=== PATIENT | male | born 2000 | race Caucasian/White ===

== ENCOUNTER 2020-06-27 20:52 | Emergency (ER) | payer BC, SELFPAY ==
--- NOTE | 2020-06-27 21:00 | [facility].EDGENADL ---
ED Disposition Clinical Impression: Lumbar disc herniation with radiculopathy Disposition: Home, Self-Care Condition on Discharge: Fair Instructions: DI for Back Pain With Sciatica, DI for Lumbar Radiculopathy Additional Instructions: Medrol Dosepak. Tylenol 3 take-home pack, then Percocet for pain. Additional instructions for BACK PAIN: See your physician as soon as possible for further evaluation. Return immediately if back pain becomes intolerable, or if fever, numbness or weakness of your legs, loss of control of your bowels or bladder. Additional instructions for CONTROLLED SUBSTANCES: You have been prescribed a medication that is a controlled substance. Controlled substances include pain medications known as opiates and sedative nerve medications known as benzodiazepines. Tramadol, fioricet, and gabapentin are also controlled substances. Some common opiates include: Codeine (such as Tylenol #3) Hydrocodone (Vicodin, Lortab, Lorcet, [place]) Oxycodone (Percocet, Percodan, Oxycodone, Oxy IR) Some common benzodiazepines include: Diazepam (Valium) Lorazepam (Ativan) Alprazolam (Xanax) Clonazepam (Klonopin) Oxazepam (Serax) All of these controlled substances are highly addictive and frequently abused. Misuse can and frequently does lead to addiction as well as overdose and . Medication should be stored in a locked cabinet or other secure storage unit. Do not store the medication in a motor vehicle. Short term supplies, 3 days or less, are prescribed because of the highly addictive nature of the medication. Any of the controlled substance medication NOT taken should be disposed of properly and NOT SAVED. The recommended method of disposing of unused medications is: Place the medicines in a sealable plastic bag. If the medicine is a solid, crush it or add water to dissolve it. Add something undesirable (cat litter, coffee grounds, etc.) Dispose of sealed bag in household trash Do not flush or pour unused medicines down a sink or drain. Controlled substances should not be shared, given away or sold. Because of the addictive nature and frequent abuse, these medications are sometimes stolen. These medications should be kept in a safe place where they cannot be stolen. Do not keep them in your car or purse. Lost or stolen prescriptions for controlled substances WILL NOT BE REFILLED in this emergency department, regardless of whether a police report was filed. Prescriptions: Oxycodone HCl/Acetaminophen [Percocet 5/325mg tablet] 1 tab PO Q6HP PRN #20 tablet PRN Reason: Moderate To Severe Pain Transmission Status: Received by [id number] methylPREDNISolone [Medrol 4mg tab] 4 mg PO DIRECTED #21 tab Transmission Status: Pending to [id number] Referrals: Taryn Dunlap MD [Primary Care Provider] - Forms: Work/School Release - Critical Care Critical Care Time: No Attestation: On 06/27/20, the high probability of a clinically significant, sudden or life threatening deterioration of the following system(s) required my full and direct attention, intervention and personal management. The time I documented below is in addition to time spent performing reported procedures but includes the following listed in this critical care notation. Medical Decision Making - Kvng Inquiry Pt receiving controlled substance: Yes Kvng was queried for this patient: Yes Risks and benefits of using a controlled substance: were discussed with pt by me Vital Signs: 06/27/20 21:04 Temperature 97.9 F Temperature Source Oral Pulse Rate [Right] 81 Respiratory Rate 22 Blood Pressure [Right Arm] 181/69 H Blood Pressure Mean [Right Arm] 106 Blood Pressure Source [Right Arm] Automatic Cuff Blood Pressure Position [Right Arm] Supine 02 Sat by Pulse Oximetry 100 Oxygen Delivery Method Room Air Orders (Tests/Meds): ED MEDICATIONS Discontinued Medications Generic Name D
[2020-06-27 21:01] VITALS: BP 242/68; PULSE 83; RESP 16; O2SAT 100
[2020-06-27 21:03] VITALS: BP 181/69; PULSE 79; RESP 16; O2SAT 100
[2020-06-27 21:04] VITALS: BP 181/69; PULSE 81; RESP 22; TEMP 36.6; O2SAT 100; BMI 23.1
--- NOTE | 2020-06-27 21:11 | CT_ITS ---
PROCEDURE: CT LUMBAR SPINE WO CON CLINICAL HISTORY: low back and left leg pain COMPARISON: No exams were available for comparison TECHNIQUE: Axial images obtained with sagittal and coronal reformats. All CT scans at the facility use one or more dose reduction, viz: automated exposure control, ma/kV adjustment per patient size (including targeted exams where dose is matched to indication, i.e. head), or iterative reconstruction technique. FINDINGS: Normal alignment. No fracture or dislocation. No lytic or blastic change. Unfused medial aspect of the right L1 transverse process. L2-L3 and L3-L4 have an unremarkable appearance. L4-5: Minimal bulging disc. L5-S1: Medium-sized left paracentral and foraminal disc protrusion/herniation. There is left lateral recess narrowing with suspected impingement upon the S1 and L5 nerve roots. IMPRESSION: Medium-sized left paracentral and foraminal disc protrusion/herniation at L5-S1 causing lateral recess and foraminal narrowing with suspected impingement upon the L5 and S1 nerve roots. MRI may confirm Dictated by: Jules Dia MD 06/28/2020 11:13 Jules Dia MD in [place] 06/28/2020 11:13
[2020-06-27 22:00] VITALS: BP 124/68; PULSE 69; RESP 16; O2SAT 97
[2020-06-27 22:30] VITALS: BP 118/79; PULSE 67; RESP 17; O2SAT 98
[2020-06-27 23:03] VITALS: BP 119/69; PULSE 60; RESP 16; TEMP 36.6; O2SAT 98
== END 2020-06-27 23:09 | disposition home or self-care (01) ==
PROVIDERS: Emergency Provider Emergency Medicine; PCP Family Medicine
DX: M51.16 Intervertebral disc disorders with radiculopathy, lumbar region (principal); J45.909 Unspecified asthma, uncomplicated
CPT/HCPCS: 72131; 96374; 96375; 99282

== ENCOUNTER 2021-09-16 21:56 | Emergency (ER) | payer OTHER, SELFPAY ==
[2021-09-16 21:57] VITALS: BP 125/66; PULSE 65; RESP 16; TEMP 36.9; O2SAT 99; BMI 24.3
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
[2021-09-16 22:23] LABS: POC Glucose,Bedside 83 (70-110)
[2021-09-16 22:26] LABS: Basophils # 0.2 K/mm3 (0-0.2); Basophils % 1.3 % (0.1-2.0); Eosinophils # 0.3 K/mm3 (0.0-0.4); Eosinophils % 2.8 % (0.1-12.0); Hematocrit 43.9 % (42.0-52.0); Hemoglobin 13.6 g/dL (14.1-18.0); Lymphocytes # 3.1 K/mm3 (0.7-4.5); Lymphocytes % 27.2 % (10-50); Mean Corpuscular HGB Conc 30.9 g/dL (31.8-35.4); Mean Corpuscular Hemoglobin 28.7 pg (27.0-31.2); Mean Corpuscular Volume 93.1 fl (80-94); Mean Platelet Volume 7.9 fl (7.4-10.4); Monocytes # 0.9 K/mm3 (0.1-1.0); Monocytes % 7.4 % (1.7-9.3); Neutrophils # 7.1 K/mm3 (1.8-7.8); Neutrophils % 61.3 % (37.0-80.0); Platelet Count 327 K/mm3 (142-424); Red Blood Count 4.71 M/mm3 (4.60-6.20); Red Cell Distribution Width 13.1 % (11.5-17.5); White Blood Count 11.6 K/mm3 (4.8-10.8)
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
[2021-09-16 23:09] LABS: Chloride 102 mmol/L (98-107); Potassium 3.9 mmoL/L (3.5-5.1); Sodium 136 mmol/L (136-145)
[2021-09-16 23:11] LABS: Blood Urea Nitrogen 19 mg/dl (9-20); Creatinine Clearance Estimated 142 mL/min (50-200); Estimated Glomerular Filt Rate 94 ml/min (>60); GFR (African American) 114 ML/MIN (>60)
[2021-09-16 23:12] LABS: Alanine Aminotransferase 25 U/L (12-78); Albumin Level 4.4 g/dl (3.5-5.0); Albumin/Globulin Ratio 1.5 (1.1-1.8); Alkaline Phosphatase 51 U/L (38-126); Anion Gap 8.9 mEq/L (5-15); Aspartate Amino Transferase 45 U/L (17-59); Bilirubin,Total 0.4 mg/dl (0.2-1.3); Calcium 9.6 mg/dl (8.4-10.2); Carbon Dioxide 29 mmol/L (22.0-30.0); Globulin 2.9 g/dL (1.3-3.2); Glucose 95 mg/dl (74-100); Lipase 31 U/L (23-300); Total Protein,Serum 7.3 g/dl (6.3-8.2)
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
[2021-09-16 23:48] VITALS: BP 124/70; PULSE 60; RESP 18; TEMP 36.7; O2SAT 99
== END 2021-09-17 00:30 | disposition home or self-care (01) ==
PROVIDERS: Emergency Provider Emergency Medicine; PCP Family Medicine
DX: S16.1XXA Strain of muscle, fascia and tendon at neck level, initial encounter (principal); S63.502A Unspecified sprain of left wrist, initial encounter; S63.501A Unspecified sprain of right wrist, initial encounter; V89.2XXA Person injured in unspecified motor-vehicle accident, traffic, initial encounter; J45.909 Unspecified asthma, uncomplicated; E07.9 Disorder of thyroid, unspecified
CPT/HCPCS: 70450; 71045; 71275; 72125; 72170; 73110; 74177; 80053; 82962; 83690; 85025; 99285; Q9967

== ENCOUNTER → 2022-12-12 09:16 | Outpatient (CLI) | payer BC, SELFPAY ==
[2022-12-11 19:22] LABS: T4 (Thyroxine) 8.7 ug/dl (5.53-11.0)
[2022-12-11 19:36] LABS: Thyroid Stimulating Hormone 6.45 uIU/mL (0.465-4.68)
== END ==
PROVIDERS: PCP Family Medicine; Visit Provider Family Medicine
DX: E07.9 Disorder of thyroid, unspecified (principal)
CPT/HCPCS: 84436; 84443

== ENCOUNTER → 2022-12-12 09:43 | Outpatient (CLI) | payer BC, SELFPAY | PROVIDERS: PCP Family Medicine; Visit Provider Family Medicine | DX: E07.9 Disorder of thyroid, unspecified (principal) ==

== ENCOUNTER 2023-12-10 13:51 | Outpatient (CLI) | payer BC, SELFPAY ==
[2023-12-10 15:04] LABS: Free T4 (Free Thyroxine) 0.97 ng/dl (0.78-2.19)
[2023-12-10 15:18] LABS: Thyroid Stimulating Hormone 8.28 uIU/mL (0.465-4.68)
== END 2023-12-10 23:59 | disposition home or self-care (01) ==
LOC: LAB 13:52
PROVIDERS: PCP Family Medicine; Visit Provider Student in an Organized Health Care Education/Training Program
DX: E03.9 Hypothyroidism, unspecified (principal)
CPT/HCPCS: 36415; 84439; 84443

== ENCOUNTER 2024-06-12 10:31 | Outpatient (CLI) | payer BC, SELFPAY ==
[2024-06-12 21:17] LABS: T4 (Thyroxine) 6.9 ug/dl (5.53-11.0)
== END 2024-06-12 23:59 | disposition home or self-care (01) ==
LOC: LAB.DROPOF 06-14 10:32
PROVIDERS: PCP Family Medicine; Visit Provider Family Medicine
DX: E06.3 Autoimmune thyroiditis (principal)
CPT/HCPCS: 84436; 84443